=== PATIENT | female | born 1975 | race Caucasian/White ===

== ENCOUNTER 2021-08-28 10:35 | Emergency (ER) | payer MEDICAID, OTHER ==
[~2021-08-28] VITALS: Ht 162.6 cm; Wt 104.3 kg
[2021-08-28 10:40] VITALS: BP 154/77
[2021-08-28] MEDS ORDERED: traMADol 50 MG TAB PO ONE (11:20)
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
--- NOTE | 2021-08-28 11:43 | NUR ---
XR AT BEDSIDE
[2021-08-28 13:14] VITALS: BP 142/77
--- NOTE | 2021-08-28 13:15 | NUR ---
Patient discharged with v/s stable. Written and verbal after care instructions given and explained. Patient verbalized understanding. Ambulatory with steady gait. All questions addressed prior to discharge. Advised to follow up with PMD.
== END 2021-08-28 13:14 | disposition home or self-care (01) ==
LOC: MED 10:35
DX: S93.401A Sprain of unspecified ligament of right ankle, initial encounter (principal); V89.2XXA Person injured in unspecified motor-vehicle accident, traffic, initial encounter; Y93.89 Activity, other specified; Y92.89 Other specified places as the place of occurrence of the external cause; Y99.8 Other external cause status
CPT/HCPCS: 73610; 99283

== ENCOUNTER 2024-01-06 19:18 | Emergency (ER) | payer MEDICAID ==
[~2024-01-06] VITALS: Ht 162.6 cm; Wt 108.9 kg
[2024-01-06 19:30] VITALS: BP 137/62; PULSE 96; RESP 16; TEMP 98.2; O2SAT 99
[2024-01-06] MEDS: LIDOCAINE/EPI 1% 1:100000 20 ML VIAL INJ ONE (20:05)
[2024-01-06] MEDS: cephALEXin 500 MG CAP PO ONE (20:47)
[2024-01-06] MEDS ORDERED: DOXY-690 PO (20:58)
[2024-01-06] MEDS ORDERED: CEPH-588 PO (20:58)
[2024-01-06] MEDS: IBUPROFEN 600 MG TAB PO ONE (21:27)
[2024-01-06] MEDS ORDERED: IBUP-2213 PO (22:11)
== END 2024-01-06 21:40 | disposition home or self-care (01) ==
LOC: MED 19:18
DX: L03.317 Cellulitis of buttock (principal); Z79.899 Other long term (current) drug therapy
CPT/HCPCS: 82948; 99284; J2001

== ENCOUNTER 2024-04-09 12:23 | Inpatient (IN) | payer MEDICAID ==
[~2024-04-09] VITALS: Ht 162.6 cm; Wt 107.6 kg
[~2024-04-09 12:23] MED LIST: CEPH-588 PO; DOXY-690 PO; IBUP-2213 PO
[2024-04-09 12:41] VITALS: BP 149/80; PULSE 67; RESP 18; TEMP 97.9; O2SAT 99
[2024-04-09 13:36] LABS: BASOPHILS # (AUTO) 0.1 K/uL (0.00-0.22); BASOPHILS % (AUTO) 0.5 % (0.0-2.0); EOSINOPHILS # (AUTO) 0.3 K/uL (0-0.4); EOSINOPHILS % (AUTO) 3.1 % (0.0-4.0); HEMATOCRIT 36.9 % (36-48); HEMOGLOBIN 12.3 g/dL (12.0-16.0); LYMPHOCYTES # (AUTO) 2.2 K/uL (2.5-16.5); LYMPHOCYTES % (AUTO) 20.5 % (20.5-51.1); MEAN CORPUSCULAR HEMOGLOBIN 29 pg (27-31); MEAN CORPUSCULAR HGB CONC 33 g/dL (33-37); MEAN CORPUSCULAR VOLUME 86.9 fL (80-94); MONOCYTES # (AUTO) 0.7 K/uL (0.8-1.0); MONOCYTES % (AUTO) 6.5 % (1.7-9.3); NEUTROPHILS # (AUTO) 7.6 K/uL (1.8-7.7); NEUTROPHILS % (AUTO) 69.4 % (42.2-75.2); PLATELET COUNT (AUTO) 339 K/uL (140-450); RED BLOOD CELL COUNT(AUTO) 4.25 MIL/uL (4.20-5.40); RED CELL DISTRIBUTION WIDTH 14.4 % (11.6-13.7); WHITE BLOOD COUNT (AUTO) 10.9 K/uL (4.8-10.8)
[2024-04-09] MEDS: CLINDAMYCIN 600 MG/4 ML VIAL IV ONE (13:43)
[2024-04-09 13:51] LABS: ANION GAP 7.9 (8-16); CALCIUM 8.7 mg/dL (8.5-10.1); CARBON DIOXIDE 33.2 mmol/L (21-32); CREATININE 0.9 mg/dL (0.6-1.3); POTASSIUM 3.1 mmol/L (3.5-5.1)
[2024-04-09] MEDS: KETOROLAC 30 MG/ML VIAL IVP ONE (13:52)
[2024-04-09] MEDS ORDERED: LORazepam 1 MG TAB PO PRN (16:25)
[2024-04-09] MEDS ORDERED: MAGNESIUM OXIDE 400 MG TAB PO PRN (16:25)
[2024-04-09] MEDS ORDERED: ZOLPIDEM 5 MG TAB PO PRN (16:25)
[2024-04-09] MEDS ORDERED: cefTRIAXone 1,000 MG VIAL ONE (16:48)
[2024-04-09] MEDS: POTASSIUM CHLORIDE 10 MEQ TABER PO PRN (17:32)
[2024-04-09 17:50] VITALS: BP 155/80; PULSE 74; RESP 18; TEMP 96.6; O2SAT 98
[2024-04-09 19:40] VITALS: PULSE 69; O2SAT 97
[2024-04-09] MEDS: MORPHINE SULFATE 2 MG/ML SYR IVP PRN ×2 (19:40→23:20)
[2024-04-09 20:00] VITALS: PULSE 69; RESP 18; O2SAT 97
[2024-04-09] MEDS: ACETAMINOPHEN 325 MG TAB PO PRN (22:55)
[2024-04-10 04:00] VITALS: BP 126/79; PULSE 71; RESP 18; TEMP 96.7; O2SAT 96
[2024-04-10 06:49] LABS: BASOPHILS % (AUTO) 0.4 % (0.0-2.0); EOSINOPHILS # (AUTO) 0.4 K/uL (0-0.4); EOSINOPHILS % (AUTO) 3.5 % (0.0-4.0); HEMATOCRIT 32.7 % (36-48); HEMOGLOBIN 10.9 g/dL (12.0-16.0); LYMPHOCYTES # (AUTO) 2.3 K/uL (2.5-16.5); LYMPHOCYTES % (AUTO) 21.6 % (20.5-51.1); MEAN CORPUSCULAR HEMOGLOBIN 29 pg (27-31); MEAN CORPUSCULAR HGB CONC 33 g/dL (33-37); MEAN CORPUSCULAR VOLUME 87.2 fL (80-94); MONOCYTES # (AUTO) 0.8 K/uL (0.8-1.0); MONOCYTES % (AUTO) 7.8 % (1.7-9.3); NEUTROPHILS % (AUTO) 66.7 % (42.2-75.2); PLATELET COUNT (AUTO) 307 K/uL (140-450); RED BLOOD CELL COUNT(AUTO) 3.74 MIL/uL (4.20-5.40); RED CELL DISTRIBUTION WIDTH 14.4 % (11.6-13.7); WHITE BLOOD COUNT (AUTO) 10.4 K/uL (4.8-10.8)
[2024-04-10 07:02] LABS: ALBUMIN 2.7 g/dL (3.4-5.0); ANION GAP 8.9 (8-16); CALCIUM 8.4 mg/dL (8.5-10.1); CARBON DIOXIDE 29.5 mmol/L (21-32); CREATININE 0.8 mg/dL (0.6-1.3); MAGNESIUM 2.1 mg/dL (1.8-2.4); PHOSPHORUS 2.8 mg/dL (2.5-4.9); POTASSIUM 3.4 mmol/L (3.5-5.1); TOTAL BILIRUBIN 0.7 mg/dL (0.0-1.0); TOTAL PROTEIN, SERUM 6.5 g/dL (6.4-8.2)
[2024-04-10 08:00] VITALS: BP 172/89; PULSE 69; PULSE 89; RESP 18; RESP 20; TEMP 97.4; O2SAT 97; O2SAT 98
[2024-04-10] MEDS: PANTOPRAZOLE 40 MG TABEC PO SCH (08:41)
[2024-04-10] MEDS: AMPICILLIN/SULBACTAM 1.5 GM in NACL 0.9% 50 ML IV SCH (13:54)
[2024-04-10 16:00] VITALS: BP 147/79; PULSE 65; RESP 20; TEMP 97.8; O2SAT 100
[2024-04-10 20:00] VITALS: BP 119/65; PULSE 66; RESP 18; RESP 19; TEMP 97.2; O2SAT 95
[2024-04-11 04:00] VITALS: BP_SYST 134; BP_SYST 143; BP_DIAS 53; BP_DIAS 62; PULSE 66; PULSE 72; RESP 18; TEMP 97.3; TEMP 97.5; O2SAT 100; O2SAT 96
[2024-04-11] MEDS: IBUPROFEN 400 MG TAB PO PRN (04:12)
[2024-04-11 06:46] LABS: BASOPHILS % (AUTO) 0.4 % (0.0-2.0); EOSINOPHILS # (AUTO) 0.4 K/uL (0-0.4); EOSINOPHILS % (AUTO) 3.6 % (0.0-4.0); HEMATOCRIT 35.2 % (36-48); HEMOGLOBIN 11.8 g/dL (12.0-16.0); LYMPHOCYTES # (AUTO) 2.2 K/uL (2.5-16.5); LYMPHOCYTES % (AUTO) 21.4 % (20.5-51.1); MEAN CORPUSCULAR HEMOGLOBIN 29 pg (27-31); MEAN CORPUSCULAR HGB CONC 34 g/dL (33-37); MEAN CORPUSCULAR VOLUME 86.7 fL (80-94); MONOCYTES # (AUTO) 0.8 K/uL (0.8-1.0); MONOCYTES % (AUTO) 7.5 % (1.7-9.3); NEUTROPHILS # (AUTO) 6.8 K/uL (1.8-7.7); NEUTROPHILS % (AUTO) 67.1 % (42.2-75.2); PLATELET COUNT (AUTO) 301 K/uL (140-450); RED BLOOD CELL COUNT(AUTO) 4.06 MIL/uL (4.20-5.40); RED CELL DISTRIBUTION WIDTH 13.8 % (11.6-13.7); WHITE BLOOD COUNT (AUTO) 10.2 K/uL (4.8-10.8)
[2024-04-11 07:34] LABS: ALBUMIN 2.8 g/dL (3.4-5.0); ANION GAP 8.8 (8-16); CALCIUM 8.6 mg/dL (8.5-10.1); CARBON DIOXIDE 30.4 mmol/L (21-32); CREATININE 0.8 mg/dL (0.6-1.3); PHOSPHORUS 2.4 mg/dL (2.5-4.9); POTASSIUM 4.2 mmol/L (3.5-5.1); TOTAL BILIRUBIN 0.6 mg/dL (0.0-1.0)
[2024-04-11 08:00] VITALS: PULSE 65; RESP 18; TEMP 98.6; O2SAT 95
[2024-04-11 12:00] VITALS: BP 133/66; PULSE 70; RESP 18; TEMP 98; O2SAT 99
[2024-04-11 20:00] VITALS: BP 142/71; PULSE 65; RESP 18; TEMP 96.6; TEMP 97.5; O2SAT 100
[2024-04-12 04:00] VITALS: BP 141/74; PULSE 67; RESP 17; TEMP 97.6; O2SAT 97
[2024-04-12 06:46] LABS: BASOPHILS % (AUTO) 0.4 % (0.0-2.0); EOSINOPHILS # (AUTO) 0.6 K/uL (0-0.4); EOSINOPHILS % (AUTO) 7.5 % (0.0-4.0); HEMATOCRIT 35.7 % (36-48); HEMOGLOBIN 11.8 g/dL (12.0-16.0); LYMPHOCYTES # (AUTO) 2.2 K/uL (2.5-16.5); LYMPHOCYTES % (AUTO) 28.9 % (20.5-51.1); MEAN CORPUSCULAR HEMOGLOBIN 29 pg (27-31); MEAN CORPUSCULAR HGB CONC 33 g/dL (33-37); MEAN CORPUSCULAR VOLUME 87.8 fL (80-94); MONOCYTES # (AUTO) 0.5 K/uL (0.8-1.0); MONOCYTES % (AUTO) 6.7 % (1.7-9.3); NEUTROPHILS # (AUTO) 4.3 K/uL (1.8-7.7); NEUTROPHILS % (AUTO) 56.5 % (42.2-75.2); PLATELET COUNT (AUTO) 327 K/uL (140-450); RED BLOOD CELL COUNT(AUTO) 4.06 MIL/uL (4.20-5.40); RED CELL DISTRIBUTION WIDTH 14.2 % (11.6-13.7); WHITE BLOOD COUNT (AUTO) 7.6 K/uL (4.8-10.8)
[2024-04-12 07:12] LABS: ALBUMIN 2.7 g/dL (3.4-5.0); ANION GAP 9.1 (8-16); CALCIUM 8.5 mg/dL (8.5-10.1); CARBON DIOXIDE 31.7 mmol/L (21-32); CREATININE 0.8 mg/dL (0.6-1.3); MAGNESIUM 2.3 mg/dL (1.8-2.4); PHOSPHORUS 3.3 mg/dL (2.5-4.9); POTASSIUM 3.8 mmol/L (3.5-5.1); TOTAL BILIRUBIN 0.5 mg/dL (0.0-1.0); TOTAL PROTEIN, SERUM 6.9 g/dL (6.4-8.2)
[2024-04-12 08:00] VITALS: PULSE 64; RESP 18; TEMP 98; O2SAT 98
[2024-04-12] MEDS ORDERED: AMOX-999 PO (10:54)
[2024-04-12 11:07] VITALS: BP 124/73; PULSE 64; RESP 18; TEMP 98
[2024-04-12] MEDS ORDERED: GAUZE TP PRN (12:10)
[2024-04-12] MEDS ORDERED: GAUZE TP SCH (13:00)
== END 2024-04-12 12:00 | disposition home or self-care (01) | DRG 383 ==
LOC: MED 12:23 → MMU 16:24 → MTU 16:50
PROVIDERS: ADMIT Student in an Organized Health Care Education/Training Program; ATTEND Student in an Organized Health Care Education/Training Program
DX: L03.211 Cellulitis of face (principal); E44.0 Moderate protein-calorie malnutrition; E87.6 Hypokalemia; I89.0 Lymphedema, not elsewhere classified; L01.00 Impetigo, unspecified; Z79.899 Other long term (current) drug therapy; Z88.8 Allergy status to other drugs, medicaments and biological substances; Z68.41 Body mass index [BMI] 40.0-44.9, adult
CPT/HCPCS: 36415; 70487; 76536; 80048; 80053; 83605; 83735; 84100; 85025; 85651; 86140; 87040; 87070; 87075; 87081; 87186; 93971; 96365; 96367; 96375; 99285; J0295; J0696; J1885; J2270; J3490; J7060; Q0092; Q9967